=== PATIENT | female | born 1990 | race American Indian/Alaskan Native ===

== ENCOUNTER 2018-03-02 12:09 | Outpatient (CLI) | payer OTHER ==
[2018-03-02 12:51] VITALS: BP 117/71
--- NOTE | 2018-03-02 15:41 | Ultrasound Report ---
FINAL REPORT EXAM: US OB LIMITED HISTORY: well being COMPARISON: None. TECHNIQUE: Limited obstetric ultrasound was performed to evaluate amniotic fluid index. FINDINGS: There is a single live intrauterine in cephalic presentation. Amniotic fluid index is 9.3 centimeters. heart rate is 146 beats per minute. IMPRESSION: Amniotic fluid index is 9.3 centimeters.
--- NOTE | 2018-03-02 15:42 | Ultrasound Report ---
FINAL REPORT EXAM: US OB BPP WO NON-STRESS HISTORY: wellness COMPARISON: None. TECHNIQUE: Limited obstetric ultrasound was performed for biophysical profile score. FINDINGS: Single live intrauterine in cephalic presentation. Biophysical profile score: breathing movement: 2 movement: 2 posterior and tone: 2 Qualitative amniotic fluid volume: 2 Total biophysical profile score: 8. heart rate: 145 beats per minute. IMPRESSION: Normal biophysical profile score of 8
== END 2018-03-02 14:00 | disposition home or self-care (01) ==
LOC: TRG 12:09
PROVIDERS: ATTEND Obstetrics & Gynecology
DX: O47.1 False labor at or after 37 completed weeks of gestation (principal); Z3A.38 38 weeks gestation of pregnancy
CPT/HCPCS: 59025; 76815; 76819

== ENCOUNTER 2018-03-13 19:54 | Inpatient (IN) | payer OTHER ==
--- NOTE | 2018-03-13 22:24 | History and Physical Report ---
History of Present Illness Date of examination: 03/13/18 Date of admission: 03/13/18 20:10 Chief complaint: Induction of labor History of present illness: Pt is a 27yo BF EDC 03/20/18; EGA 39 0/7 weeks presents for induction of labor due to fetus in 94% per [facility]. She received late care at [facility] since transfer from [place] at 27 weeks and co-managed by [facility] for sickle cell trait. records are available and GBS is Negative. Past History Past Medical History: hematologic disorders (sickle cell trait) Past Surgical History: D&C Family/Genetic History: sickle cell/trait Social history: no significant social history, single - Obstetrical History Expected Date of Delivery: 03/20/18 Actual Gestation: 39 Week(s) 1 Day(s) : 2 Medications and Allergies Allergies Allergy/AdvReac Type Severity Reaction Status Date / Time No Known Allergies Allergy Unverified 12/08/17 19:24 Home Medications Medication Instructions Recorded Confirmed Last Taken Type Vit,Calc76/Iron/Folic 1 tab PO DAILY 12/08/17 03/02/18 03/01/18 18:00 History [Pnv 29-1 Tablet] Review of Systems All systems: negative - Physical Exam Breasts: Positive: deferred Cardiovascular: Regular rate Lungs: Positive: Clear to auscultation Abdomen: Positive: normal appearance Genitourinary (Female): Positive: normal external genitalia Uterus: Positive: enlarged Extremities: Positive: normal - Obstetrical FHR: category 1 Uterine Contraction Monitor Mode: External Results Result Diagrams: 03/14/18 00:00 All other labs normal. Assessment and Plan - Patient Problems (1) 39 weeks gestation of Onset Date: 03/13/18 Current Visit: Yes Status: Acute Plan to address problem: A: IUP @ 39 0/7 weeks P: Admit to L&D for cervidil/pitocin induction of labor
[2018-03-13] MEDS ORDERED: ZOFRAN IV PRN (22:25)
[2018-03-13] MEDS ORDERED: XYLOCAINE 2% INFILTRATI ONE (22:25)
[2018-03-13] MEDS ORDERED: BRETHINE SUB-Q PRN (22:25)
[2018-03-13] MEDS ORDERED: MINERAL OIL PO PRN (22:25)
[2018-03-13] MEDS ORDERED: BRETHINE IVP PRN (22:25)
[2018-03-13] MEDS ORDERED: CERVIDIL VG ONE (22:25)
[2018-03-13] MEDS ORDERED: SUBLIMAZE IV PRN (22:25)
[2018-03-13] MEDS ORDERED: PHENERGAN PO PRN (22:25)
[2018-03-13] MEDS ORDERED: PITOCin/NS 30 UNIT/500ML 30 UNITS/500 ML BAG IV SCH ×2 (23:00)
[2018-03-13] MEDS ORDERED: PITOCin/NS 20 UNIT/1000ML DRIP 20 UNITS/1,000 ML BAG IV SCH (23:00)
[2018-03-13] MEDS ORDERED: LACTATED RINGERS 1,000 ML IV SCH (23:00)
[2018-03-14 01:26] LABS: Hematocrit 39.4 % (30.3-42.9); Hemoglobin 13.5 gm/dl (10.1-14.3); Mean Corpuscular HGB Conc 34 % (30-34); Mean Corpuscular Volume 84 fl (79-97); Platelet Count 201 K/mm3 (140-440); Red Blood Count 4.72 M/mm3 (3.65-5.03); Red Cell Distribution Width 14.3 % (13.2-15.2)
[2018-03-14] MEDS: STADOL IV PRN ×3 (08:11→14:56)
--- NOTE | 2018-03-14 11:06 | Progress Note ---
Assessment and Plan - Patient Problems (1) 39 weeks gestation of Onset Date: 03/13/18 Current Visit: Yes Status: Acute Plan to address problem: A: IUP @ 39 1/7 weeks P: Continue with pitocin induction of labor Expectant vaginal delivery Subjective - Subjective Date of service: 03/14/18 Principal diagnosis: IUP @ 39 1/7 weeks Interval history: Pt is a 27yo BF EDC 03/20/18; EGA 39 1/7 weeks presents for induction of labor due to fetus in 94% per [facility]. She received cervidil last night and currently farida q 2-3 mins. SROM clear fluid @ 1100. Patient reports: loss of fluid, movement normal, contractions, no new complaints, no vaginal bleeding Objective - Vital Signs Vital Signs: Vital Signs - 12hr 03/13/18 03/14/18 03/14/18 23:51 02:24 02:33 Temperature 97.9 F 97.2 F L Pulse Rate 93 H 95 H 83 Respiratory 18 18 Rate Blood Pressure 119/70 118/58 Blood Pressure 128/69 119/70 [Right] 03/14/18 03/14/18 03/14/18 04:34 06:32 07:31 Temperature 97.3 F L Pulse Rate 96 H 90 Respiratory Rate Blood Pressure 111/61 116/63 Blood Pressure [Right] 03/14/18 03/14/18 08:33 10:33 Temperature Pulse Rate 93 H 92 H Respiratory Rate Blood Pressure 123/64 131/70 Blood Pressure [Right] - Exam Abdomen: Present: normal appearance, soft Uterus: Present: normal FHR: category 1 Uterine Contraction Monitor Mode: External Cervical Dilatation: 3.5 Cervical Effacement Percentage: 90 station: -2 Uterine Contraction Pattern: Regular Uterine Tone Measurement Phase: Contraction Uterine Contraction Intensity: Strong/Firm - Labs Labs: Laboratory Results - last 24 hr 03/14/18 03/14/18 00:00 00:00 WBC 7.4 RBC 4.72 Hgb 13.5 Hct 39.4 MCV 84 MCH 29 MCHC 34 RDW 14.3 Plt Count 201 Blood Type AB POSITIVE Antibody Screen Negative
[2018-03-14] MEDS ORDERED: XYLOCAINE 2% INFILTRATI ONE (18:29)
[2018-03-14] MEDS ORDERED: CYTOTEC ONE (18:35)
[2018-03-14] MEDS ORDERED: METHERGINE IM ONE (18:35)
--- NOTE | 2018-03-14 19:08 | Procedure Note ---
OB Delivery Note - Delivery Date of Delivery: 03/14/18 Surgeon: FAISAL OVALLE Estimated blood loss: 300cc - Vaginal Delivery presentation: vertex Delivery position: OA Intrapartum events: PROM->1hr before delivery Delivery induction: cervidil Delivery augmentation: rupture of membranes, pitocin Delivery monitor: external FHT, external uterine Route of delivery: vacuum extraction Indicators for instrumentation: nonreassuring FHR tracing Delivery placenta: spontaneous Delivery cord: 3 umbilical vessels Episiotomy: none Delivery laceration: 3rd degree Delivery repair: vicryl Anesthesia: local Delivery comments: Infant delivered with the aid of a vacuum, 3 pulls, no pop-offs, and placed on Mom's chest for [id number] bonding and delayed cord clamping. Peds/RT in attendance. - Infant A at 1 minute: 8 at 5 minutes: 9 Infant Gender: Female (3814gms)
[2018-03-14] MEDS ORDERED: MILK OF MAGNESIA PO PRN (19:10)
[2018-03-14] MEDS ORDERED: NORCO 5/325 PO PRN (19:10)
[2018-03-14] MEDS ORDERED: METHERGINE IM PRN (19:10)
[2018-03-14] MEDS ORDERED: TUCKS PAD TP PRN (19:10)
[2018-03-14] MEDS ORDERED: ZOFRAN IV PRN (19:10)
[2018-03-14] MEDS ORDERED: TYLENOL PO PRN (19:10)
[2018-03-14] MEDS ORDERED: DULCOLAX PR PRN (19:10)
[2018-03-14] MEDS ORDERED: PHENERGAN PO PRN (19:10)
[2018-03-14] MEDS ORDERED: BENADRYL PO PRN (19:10)
[2018-03-14] MEDS ORDERED: LANSINOH TP PRN (19:10)
[2018-03-14] MEDS ORDERED: PHENERGAN PR PRN (19:10)
[2018-03-14] MEDS ORDERED: SODIUM CHLORIDE FLUSH SYRINGE 10 ML IV SCH (20:00)
[2018-03-14] MEDS ORDERED: PITOCin/NS 20 UNIT/1000ML DRIP 20 UNITS/1,000 ML BAG IV SCH (20:00)
[2018-03-14] MEDS ORDERED: CYTOTEC PR ONE (20:00)
[2018-03-14] MEDS: IBUPROFEN PO SCH (20:34)
[2018-03-14] MEDS ORDERED: DERMOPLAST TP PRN (22:27)
[2018-03-14] MEDS: FEOSOL PO SCH (22:37)
[2018-03-14] MEDS: COLACE PO SCH (22:37)
[2018-03-15] MEDS ORDERED: BOOSTRIX IM ONE (06:00)
[2018-03-15] MEDS: IBUPROFEN PO SCH ×3 (06:08→18:40)
[2018-03-15 07:45] LABS: Hematocrit 33.6 % (30.3-42.9); Hemoglobin 11.3 gm/dl (10.1-14.3)
--- NOTE | 2018-03-15 08:51 | Progress Note ---
Assessment and Plan - Patient Problems (1) 39 weeks gestation of Onset Date: 03/13/18 Current Visit: Yes Status: Resolved (2) (normal spontaneous vaginal delivery) Onset Date: 03/15/18 Current Visit: Yes Status: Resolved Plan to address problem: A: S/P - PPD #1 Doing well Asymptomatic anemia - stable P: May go home tomorrow. Subjective - Subjective Date of service: 03/15/18 Principal diagnosis: s/p - PPD #1 Interval history: Pt is feeling well without complaints. Bleeding improved. Patient reports: appetite normal, voiding normally, pain well controlled, flatus, ambulating normally, no dizzy ambulation, no nauseated [place]: doing well, nursing well Objective - Vital Signs Latest vital signs: Vital Signs Temp Pulse Resp BP BP 03/15/18 06:15 98.7 F 107 H 18 116/68 03/15/18 00:00 99.2 F 114 H 18 108/72 03/14/18 21:00 112 H 20 118/70 03/14/18 20:40 127 H 134/68 03/14/18 18:36 154/73 03/14/18 18:25 98.0 F 03/14/18 18:21 113 H 142/81 03/14/18 18:06 139 H 142/67 03/14/18 17:53 131 H 140/74 03/14/18 17:37 127 H 145/64 03/14/18 17:21 136 H 141/72 03/14/18 17:06 137 H 145/60 03/14/18 16:51 121 H 137/66 03/14/18 16:36 126 H 145/67 03/14/18 16:21 118 H 135/68 03/14/18 16:19 127 H 131/63 03/14/18 16:06 129 H 161/70 03/14/18 15:51 118 H 150/69 03/14/18 15:37 115 H 149/67 03/14/18 15:22 116 H 133/63 03/14/18 15:06 125 H 124/69 03/14/18 14:34 121 H 132/62 03/14/18 13:55 104 H 133/68 03/14/18 13:04 97.6 F 03/14/18 12:33 103 H 108/55 03/14/18 10:33 92 H 131/70 Intake and Output 03/14/18 03/15/18 03/15/18 22:59 06:59 14:59 Intake Total 373.667 360 Output Total 600 600 Balance -226.333 -240 Intake: IV 13.667 PITOCin/NS 30 UNIT/500ML 13.667 30 units In 500 ml @ 1 MILLIUNITS/MIN 1 mls/hr IV TITR JAROD Rx#:[id number] Intake, Free Water 360 360 Output: Urine 600 600 Void 600 600 Other: Total, Output Amount 300 200 # Voids Void 300 Estimated Blood Loss 300 - Exam Abdomen: Present: normal appearance, soft Uterus: Present: normal, firm, fundal height below umbilicus Extremities: Present: normal - Labs Labs: Laboratory Tests 03/14/18 03/14/18 03/14/18 00:00 00:00 00:00 WBC 7.4 RBC 4.72 Hgb 13.5 Hct 39.4 MCV 84 MCH 29 MCHC 34 RDW 14.3 Plt Count 201 RPR Nonreactive Blood Type AB POSITIVE Antibody Screen Negative 03/15/18 07:32 WBC RBC Hgb 11.3 Hct 33.6 MCV MCH MCHC RDW Plt Count RPR Blood Type Antibody Screen
[2018-03-15] MEDS: COLACE PO SCH ×2 (10:51→21:59)
[2018-03-15] MEDS: FEOSOL PO SCH ×2 (10:51→21:59)
[2018-03-15] MEDS: PRENATAL VITAMIN PO SCH (10:51)
[2018-03-15] MEDS ORDERED: M-M-R II VACCINE SUB-Q ONE (19:10)
[2018-03-16] MEDS: IBUPROFEN PO SCH ×3 (00:37→13:13)
[2018-03-16] MEDS: PRENATAL VITAMIN PO SCH (10:56)
[2018-03-16] MEDS: FEOSOL PO SCH (10:56)
[2018-03-16] MEDS: COLACE PO SCH (10:56)
--- NOTE | 2018-03-16 13:12 | Discharge Summary ---
Providers - Providers Date of Admission: 03/13/18 20:10 Date of discharge: 03/16/18 Attending physician: FAISAL OVALLE Primary care physician: FAISAL OVALLE Hospitalization Reason for admission: induction of labor, IUP at term Delivery: , vacuum extraction Episiotomy: none Laceration: 3rd degree Incision: normal Other procedures: none complications: none Discharge diagnosis: IUP at term delivered [place] baby: female Hospital course: Unremarkable. Condition at discharge: Good Disposition: DC-01 TO HOME OR SELFCARE - Discharge Diagnoses (1) 39 weeks gestation of Status: Resolved (2) (normal spontaneous vaginal delivery) Status: Resolved Plan - Discharge Medications Prescriptions: Ferrous Sulfate [Feosol 325 MG tab] 325 mg PO BID #60 tablet Ibuprofen [Motrin 600 MG tab] 600 mg PO Q6HR #30 tablet Vit-Fe Fumar-FA [ Vitamin] 1 each PO QDAY #30 tablet - Provider Discharge Summary Activity: routine, no sex for 6 weeks, no heavy lifting 4 weeks, no strenuous exercise Diet: routine Instructions: routine Additional instructions: [] Smoking cessation referral if applicable(refer to patient education folder for contact #) [] Refer to [facility]'s [facility] Booklet Call your doctor immediately for: * Fever > 100.5 * Heavy vaginal bleeding ( >1 pad per hour) * Severe persistent headache * Shortness of breath * Reddened, hot, painful area to leg or breast * Drainage or odor from incision. * Keep incision clean and dry at all times and follow doctor's instructions regarding bathing/showering - Follow up plan Follow up: FAISAL OVALLE MD [Primary Care Provider] - 6 Weeks
[2018-03-16 16:04] VITALS: BP 114/72
== END 2018-03-16 15:25 | disposition home or self-care (01) | DRG 768 ==
LOC: TRG 19:54 → LD 20:10 → OB 03-14 21:16
PROVIDERS: ADMIT Obstetrics & Gynecology; ATTEND Obstetrics & Gynecology
PROC: 10D07Z6 Extraction of Products of Conception, Vacuum, Via Natural or Artificial Opening (ICD-10-PCS; principal; 2018-03-14)
PROC: 0DQR0ZZ Repair Anal Sphincter, Open Approach (ICD-10-PCS; 2018-03-14)
PROC: 3E0P7VZ Introduction of Hormone into Female Reproductive, Via Natural or Artificial Opening (ICD-10-PCS; 2018-03-14)
DX: O42.02 Full-term premature rupture of membranes, onset of labor within 24 hours of rupture (principal); Z37.0 Single live birth; O70.20 Third degree perineal laceration during delivery, unspecified; O99.02 Anemia complicating childbirth; D57.3 Sickle-cell trait; Z3A.39 39 weeks gestation of pregnancy
CPT/HCPCS: 36415; 59200; 84439; 84443; 85014; 85018; 85027; 86592; 86706; 86850; 86900; 86901; G0378; J0595; J2210; J2590; J7120